=== PATIENT | female | born 1955 | race Caucasian/White ===

== ENCOUNTER → 2021-11-08 | Outpatient (CLI) | payer OTHER ==
[~2021-11-08] MED LIST: AMOXICILLIN500 MG PO; ANTIVERT 12.512.5 MG PO; ATORVASTATIN CA20 MG PO; FLONASE 0.05% N16 GM; LIPITOR TAB 2020 MG PO; MECLIZINE HCL25 MG PO; PANTOPRAZOLE SO40 MG PO; PHENERGAN 12.12.5 M1 PO; PROGESTERONE TP; TENORMIN 25 MG25 MG PO; ZOFRAN ODT 4 MG4 MG SL; [UNRECOGNIZED DRUG - CODE] TP
== END ==
LOC: HEART 5 09:57
DX: R06.02 Shortness of breath (principal); R05.3 Chronic cough; R94.2 Abnormal results of pulmonary function studies
CPT/HCPCS: 94010

== ENCOUNTER → 2021-12-11 | Outpatient (CLI) | payer OTHER | LOC: EXRD 09:52 | DX: M25.562 Pain in left knee (principal); M25.561 Pain in right knee; M17.0 Bilateral primary osteoarthritis of knee | CPT/HCPCS: 73564 ==

== ENCOUNTER → 2022-01-29 | Outpatient (CLI) | payer OTHER ==
[~2022-01-29] MED LIST changes: +ARNUITY ELLIP200 MCG INH; +ARTHROTEC 50 M1 EACH PO; +ASPIRIN EC81 MG PO; +CODEINE-GUAIFE473 ML PO; +CYMBALTA30 MG PO; +DEXILANT60 MG PO; +MULTIVITAMIN1 EACH PO; +MYCOSTATIN100000 UTS PO; +OSTEO BI-FLEX1 EACH PO; -PHENERGAN 12.12.5 M1 PO; +PHENERGAN 25 MG25 M1 PO; +PROAIR HFA8.5 GM INH
== END ==
LOC: KOH-I 08:54
DX: J84.10 Pulmonary fibrosis, unspecified (principal); R05.9 Cough, unspecified; R91.1 Solitary pulmonary nodule
CPT/HCPCS: 71250

== ENCOUNTER 2022-01-30 10:43 | Observation (INO) | payer OTHER ==
[~2022-01-30] VITALS: Ht 165.1 cm; Wt 81.2 kg
[~2022-01-30 10:43] MED LIST changes: -ARNUITY ELLIP200 MCG INH; -ARTHROTEC 50 M1 EACH PO; -ASPIRIN EC81 MG PO; -CODEINE-GUAIFE473 ML PO; -CYMBALTA30 MG PO; -DEXILANT60 MG PO; -LIPITOR TAB 2020 MG PO; -MULTIVITAMIN1 EACH PO; -MYCOSTATIN100000 UTS PO; -OSTEO BI-FLEX1 EACH PO; -PHENERGAN 25 MG25 M1 PO; -PROAIR HFA8.5 GM INH
[2022-01-30 11:21] LABS: HEMOGLOBIN 12.7 gm/dl (12.3-15.3); RED BLOOD COUNT 4.39 M/UL (4.00-5.10)
[2022-01-30 11:42] LABS: BUN/CREATININE RATIO 10 (0-10)
[2022-01-30] MEDS ORDERED: MYCOSTATIN100000 UTS PO (12:27)
[2022-01-30] MEDS ORDERED: ARTHROTEC 50 M1 EACH PO (12:28)
[2022-01-30] MEDS ORDERED: PROAIR HFA8.5 GM INH (12:29)
[2022-01-30] MEDS ORDERED: CYMBALTA30 MG PO (12:29)
[2022-01-30] MEDS ORDERED: ARNUITY ELLIP200 MCG INH (12:29)
[2022-01-30] MEDS ORDERED: DEXILANT60 MG PO (12:50)
[2022-01-30] MEDS ORDERED: CODEINE-GUAIFE473 ML PO (12:52)
[2022-01-30] MEDS ORDERED: OSTEO BI-FLEX1 EACH PO (12:53)
[2022-01-30] MEDS ORDERED: MULTIVITAMIN1 EACH PO (12:53)
[2022-01-30] MEDS ORDERED: LIPITOR TAB 2020 MG PO (14:40)
[2022-01-30] MEDS ORDERED: PHENERGAN 25 MG25 M1 PO (17:41)
[2022-01-31 04:02] LABS: HEMOGLOBIN 11.3 gm/dl (12.3-15.3); RED BLOOD COUNT 4.02 M/UL (4.00-5.10); WHITE BLOOD COUNT 7.8 K/UL (4.5-11.0)
[2022-01-31 04:26] LABS: BUN/CREATININE RATIO 8 (0-10)
[2022-01-31] MEDS ORDERED: ASPIRIN EC81 MG PO (14:20)
[2022-01-31] MEDS ORDERED: MECLIZINE HCL25 MG PO (14:33)
== END 2022-01-31 15:08 | disposition home health service (06) ==
LOC: ER1 10:43 → CDU 13:16 → M/S 20:12
PROVIDERS: Emergency Medicine; Physician Assistant; ADMIT Internal Medicine
DX: R11.2 Nausea with vomiting, unspecified (principal); R42 Dizziness and giddiness; R53.1 Weakness; I45.10 Unspecified right bundle-branch block; R91.1 Solitary pulmonary nodule; M19.90 Unspecified osteoarthritis, unspecified site; I10 Essential (primary) hypertension; E78.5 Hyperlipidemia, unspecified; Z88.1 Allergy status to other antibiotic agents; Z79.899 Other long term (current) drug therapy; Z20.822 Contact with and (suspected) exposure to COVID-19
CPT/HCPCS: ECHO; 36415; 70450; 70496; 70498; 70551; 71045; 80048; 80053; 80061; 81001; 82550; 82553; 83735; 84484; 85025; 87086; 93005; 93306; 96374; 96375; 97161; 97165; 99285; G0378; J2405; J2550; Q9967; U0002

== ENCOUNTER 2022-04-15 13:52 | Emergency (ER) | payer OTHER ==
[~2022-04-15 13:52] MED LIST changes: +ARNUITY ELLIP200 MCG INH; +ARTHROTEC 50 M1 EACH PO; +ASPIRIN EC81 MG PO; +CODEINE-GUAIFE473 ML PO; +CYMBALTA30 MG PO; +DEXILANT60 MG PO; +LIPITOR TAB 2020 MG PO; +MULTIVITAMIN1 EACH PO; +MYCOSTATIN100000 UTS PO; +OSTEO BI-FLEX1 EACH PO; +PHENERGAN 25 MG25 M1 PO; +PROAIR HFA8.5 GM INH
[2022-04-15 14:36] LABS: HEMOGLOBIN 13.2 gm/dl (12.3-15.3); RED BLOOD COUNT 4.58 M/UL (4.00-5.10); WHITE BLOOD COUNT 11.2 K/UL (4.5-11.0)
[2022-04-15 14:48] LABS: CAMPYLOBACTER Not Detected (Negative); CRYPTOSPORIDIUM Not Detected (Negative); E.COLI 0157 Not Detected (Negative); ENTEROAGGREGATIVE E.COLI (EAEC Not Detected (Negative); ENTEROPATHOGENIC E.COLI (EPEC) Not Detected (Negative); ENTEROTOXIGENIC E.COLI (ETEC) Not Detected (Negative); PLESIOMONAS SHIGELLOIDES Not Detected (Negative); SALMONELLA Not Detected (Negative); SHIG/ENTEROINVAS.ECOLI (EIEC) Not Detected (Negative); SHIGA-LIK TOX.PRO.E.COLI (STEC Not Detected (Negative); VIBRIO Not Detected (Negative); VIBRIO CHOLERAE Not Detected (Negative); YERSINIA ENTEROCOLITICA Not Detected (Negative)
[2022-04-15 14:49] LABS: ADENOVIRUS F 40/41 Not Detected (Negative); ASTROVIRUS Not Detected (Negative); ENTAMOEBA HISTOLYTICA Not Detected (Negative); GIARDIA LAMBLIA Not Detected (Negative); ROTOVIRUS A Not Detected (Negative); SAPOVIRUS Not Detected (Negative)
[2022-04-15 14:55] LABS: BUN/CREATININE RATIO 20 (0-10)
[2022-04-15 16:08] LABS: CLOSTRIDIUM DIFFICILE TOX A/B Not Detected (Negative); NOROVIRUS GI/GII DETECTED (Negative)
[2022-04-15] MEDS ORDERED: ZOFRAN 4 MG TAB4 MG PO (17:58)
== END 2022-04-15 18:12 | disposition home or self-care (01) ==
LOC: ER1 13:52
PROVIDERS: Preventive Medicine Occupational Medicine
DX: A08.11 Acute gastroenteropathy due to Norwalk agent (principal); A08.4 Viral intestinal infection, unspecified; I10 Essential (primary) hypertension; R31.9 Hematuria, unspecified; Z20.822 Contact with and (suspected) exposure to COVID-19
CPT/HCPCS: 0240U; 80053; 81001; 82009; 82140; 83690; 85025; 85652; 86140; 87086; 87507; 96374; 99284; J2405; Q9967